=== PATIENT | female | born 1975 | race Caucasian/White ===

== ENCOUNTER 2017-07-14 11:58 | Inpatient (IN) | payer OTHER ==
[~2017-07-14] VITALS: Ht 165.1 cm; Wt 73.1 kg
[~2017-07-14 11:58] MED LIST: BUPR1SUB SL
[2017-07-14] MEDS ORDERED: SODIUM CHLORIDE 0.9% 1000ML 1,000 ML IV ONE (12:04)
--- NOTE | 2017-07-14 12:04 | EMERGENCY ROOM VISIT NOTE ---
History Report prepared by Adam: Lux Coombs Under the Supervision of: Dr. John White D.O. First contact with patient: 11:58 Stated Complaint: SEPSIS History of Present Illness The patient is a 41 year old female sepsis alert who presents to the Emergency Room with a worsening drug overdose over the past couple weeks. Per EMS, the patient has been laying around her own filth on her couch for 14 days. An insulin syringe was found under her bra at the scene, and the patient is a known heroin addict. The couch was soaked in urine and blood, and the patient is currently menstruating. Family members have been in and out of her home to bring the patient items to drink and eat. Per EMS, the patient's sugars were 170 at the scene. The patient notes that she is a current smoker. History somewhat limited secondary to patient's altered mental status. Source of History: patient, EMS History Limited By: AMS Onset: Over past couple weeks Position: other (global) Symptom Intensity: insulin syringe found under her bra Quality: other (drug overdose) Timing: worsening Associated Symptoms: + urinary symptoms (incontinence) Note: Associated symptoms: Couch covered in blood. Laying around in her own filth for 14 days. Review of Systems See HPI for pertinent positives & negatives. A total of 10 systems reviewed and were otherwise negative. Past Medical & Surgical Medical Problems: (1) Altered mental status (2) Depression (3) Sepsis (4) Suicidal ideation Family History Diabetes mellitus Hypertension Social History Smoking Status: Current Every Day Smoker Drug Use: heroin Marital Status: single Housing Status: lives alone Occupation Status: unemployed Current/Historical Medications Unable to Obtain Active Prescriptions or Reported Meds Allergies Coded Allergies: No Known Allergies (Unverified , 07/14/17) Physical Exam Vital Signs Date Time Temp Pulse Resp B/P (MAP) Pulse Ox O2 Delivery O2 Flow Rate FiO2 07/14/17 15:24 39.6 125 99 07/14/17 15:00 126 28 124/84 07/14/17 14:30 37.8 124 20 119/79 99 Room Air 07/14/17 13:30 124 20 110/74 100 Room Air 07/14/17 12:09 134 07/14/17 12:00 38.3 131 22 117/79 95 Room Air 07/14/17 12:00 97 Room Air Physical Exam GENERAL: Patient is slow to respond to questions but appears to answer appropriately. EYES: Pupils were constricted and minimally reactive to light bilaterally. EARS, NOSE, MOUTH AND THROAT: The nose is without any evidence of any deformity. Mucous membranes are dry, tongue is midline NECK: The neck is nontender and supple. RESPIRATORY: Normal respiratory effort is noted there is no evidence of wheezing rhonchi or rales CARDIOVASCULAR: Heart sounds were tachycardic but regular. No definite murmurs noted. GASTROINTESTINAL: The abdomen is mildly distended but soft. No guarding or rigidity appreciated. PELVIS: The Pelvis is stable. No tenderness to palpation is noted. BACK: No midline tenderness or or step-off noted range of motion in flexion extension as well as rotation no signs of muscle spasm noted MUSCULOSKELETAL/EXTREMITIES: There is no evidence of gross deformity full range of motion is noted in the hips and shoulders SKIN: There is pedal edema bilaterally with generalized edema throughout both lower extremities. Ecchymosis over both lower extremities which was age- indeterminant. NEUROLOGIC: Patient is oriented to person, place, and situation. Patellar tendon reflexes were absent bilaterally. Medical Decision & Procedures ER Provider Diagnostic Interpretation: Radiology results as stated below per my review and radiologist interpretation: CHEST ONE VIEW PORTABLE HISTORY: 41 years-old Female Sepsis acute sepsis COMPARISON: Chest radiograph 09/14/2013 TECHNIQUE: Portable AP view of the chest FINDINGS: Heart and mediastinal and hilar silhouettes are within normal limits. No pneumothorax, pleural effusion or overt pulmonary edema. Subsegmental left basilar opacities are noted. Bones of the chest appear grossly intact. IMPRESSION: Subsegmental left basilar opacities suggest atelectasis. The above report was generated using voice recognition software. It may contain grammatical, syntax or spelling errors. Electronically signed by: Toni Breaux M.D. 07/14/2017 12:32 PM Dictated Date/Time: 07/14/2017 12:31 PM THORACIC SPINE WITH HISTORY: 41 years-old Female pain, recent IVDA acute thoracic spine pain with history of IV drug abuse. COMPARISON: CT cervical spine of same day TECHNIQUE: Multiple axial CT images of the thoracic spine were obtained following the intravenous administration of 92 mL Optiray 320 IV contrast. Coronal and sagittal reformatted images were obtained from the axial data set and were submitted for review. A dose lowering technique was used consistent with the principals of ALARA. FINDINGS: Mild degenerative changes about the lower cervical spine as reported on separately dictated CT cervical spine study of same day. No acute fracture or subluxation of the thoracic spine. No significant intervertebral disc space narrowing, central canal or foraminal narrowing identified. The imaged ribs also appear intact. Lobulated low attenuating lesion of the left upper quadrant measures 4.6 x 2.8 cm, likely within the left hepatic lobe with suggested discontinuous nodular peripheral enhancement suggesting a possible hemangioma. No perisplenic fluid identified on these images. There is mild stranding about mildly thickened left adrenal gland. 2 mm nonobstructing calculus of the superior pole left kidney. No paraspinal or pleural fluid collections identified. There is no abnormal enhancement. Aberrant right subclavian artery. No pneumothorax. Lung paulino appear generally clear. IMPRESSION: 1. Mildly motion degraded exam without acute fracture or subluxation. No abnormal enhancement. 2. Lobulated 4.6 cm lesion of the abdominal left upper quadrant appears to be within the left hepatic lobe, possibly reflecting a hemangioma. Less likely differential consideration would include a splenic lesion. 3. 2 mm nonobstructing calculus of the superior pole left kidney. 4. Aberrant right subclavian artery. The above report was generated using voice recognition software. It may contain grammatical, syntax or spelling errors. Electronically signed by: Toni Breaux M.D. 07/14/2017 3:01 PM Dictated Date/Time: 07/14/2017 2:53 PM LUMBAR SPINE WITH CLINICAL HISTORY: pain, recent IVDA TECHNIQUE: Transaxial acquisition with multi axial reformatted images COMPARISON STUDY: None FINDINGS: Normal alignment of the vertebral bodies. Intervertebral this are well-preserved. Minimal scattered degenerative changes of the vertebral endplates. Posterior elements are intact throughout. No evidence for spondylolysis or spondylolisthesis. IMPRESSION: Minimal degenerative change. No acute process. The above report was generated using voice recognition software. It may contain grammatical, syntax or spelling errors. Electronically signed by: Santy Tony M.D. 07/14/2017 3:01 PM Dictated Date/Time: 07/14/2017 2:59 PM HEAD WITHOUT CONTRAST (CT) CLINICAL HISTORY: 41 years-old Female with altered MS. Acutely altered mental status TECHNIQUE: Multiple axial CT images of the head were obtained without contrast. A dose lowering technique was utilized adhering to the principles of ALARA. COMPARISON: CT cervical spine of same day FINDINGS: Study is mildly motion degraded. No acute intracranial hemorrhage, midline shift, intracranial mass, hydrocephalus, territorial ischemia or abnormal extra-axial collection. Senescent calcifications of the lentiform nuclei. The calvarium is intact. Mastoid air cells are clear. Mild to moderate mucosal thickening of the ethmoid air cells. Soft tissues and orbits are unremarkable. IMPRESSION: No acute intracranial abnormality. The above report was generated using voice recognition software. It may contain grammatical, syntax or spelling errors. Electronically signed by: Toni Breaux M.D. 07/14/2017 2:53 PM Dictated Date/Time: 07/14/2017 2:49 PM CERVICAL SPINE W/O CLINICAL HISTORY: 41 years-old Female with altered MS. Acute neck pain with altered mental status COMPARISON: CT head of same day. TECHNIQUE: Multiple axial CT images of the cervical spine were obtained without contrast. A dose lowering technique was utilized adhering to the principles of ALARA. FINDINGS: Mastoid air cells and middle ear cavities are clear. No acute cervical spine fracture or subluxation identified. There is mild intervertebral disc space narrowing with disc osteophyte complex formation at C5-C6. Multilevel mild uncovertebral spurring with minimal multilevel right-sided facet spurring. No high-grade central canal or foraminal narrowing. There is suggestion of mild left-sided foraminal narrowing at C5-C6. Soft tissues and imaged lung apices appear clear. IMPRESSION: No acute cervical spine fracture or subluxation. The above report was generated using voice recognition software. It may contain grammatical, syntax or spelling errors. Electronically signed by: Toni Breaux M.D. 07/14/2017 2:49 PM Dictated Date/Time: 07/14/2017 2:44 PM Laboratory Results 07/14/17 12:23 Red Blood Count 4.28, Mean Corpuscular Volume 82.2, Mean Corpuscular Hemoglobin 27.6, Mean Corpuscular Hemoglobin Concent 33.5, Mean Platelet Volume 8.9, Neutrophils (%) (Auto) 89.1, Lymphocytes (%) (Auto) 2.6, Monocytes (%) (Auto) 7.3, Eosinophils (%) (Auto) 0.0, Basophils (%) (Auto) 0.1, Neutrophils # (Auto) 15.73, Lymphocytes # (Auto) 0.46, Monocytes # (Auto) 1.29, Eosinophils # (Auto) 0.00, Basophils # (Auto) 0.02 Test 07/14/17 12:23 07/14/17 12:37 07/14/17 13:15 07/14/17 15:55 White Blood Count 17.66 K/uL (4.8-10.8) Red Blood Count 4.28 M/uL (4.2-5.4) Hemoglobin 11.8 g/dL (12.0-16.0) Hematocrit 35.2 % (37-47) Mean Corpuscular Volume 82.2 fL (80-100) Mean Corpuscular Hemoglobin 27.6 pg (25-34) Mean Corpuscular Hemoglobin Concent 33.5 g/dl (32-36) Platelet Count 126 K/uL (130-400) Mean Platelet Volume 8.9 fL (7.4-10.4) Neutrophils (%) (Auto) 89.1 % Lymphocytes (%) (Auto) 2.6 % Monocytes (%) (Auto) 7.3 % Eosinophils (%) (Auto) 0.0 % Basophils (%) (Auto) 0.1 % Neutrophils # (Auto) 15.73 K/uL (1.4-6.5) Lymphocytes # (Auto) 0.46 K/uL (1.2-3.4) Monocytes # (Auto) 1.29 K/uL (0.11-0.59) Eosinophils # (Auto) 0.00 K/uL (0-0.5) Basophils # (Auto) 0.02 K/uL (0-0.2) RDW Standard Deviation 39.4 fL (36.4-46.3) RDW Coefficient of Variation 13.1 % (11.5-14.5) Immature Granulocyte % (Auto) 0.9 % Immature Granulocyte # (Auto) 0.16 K/uL (0.00-0.02) Erythrocyte Sedimentation Rate 33 mm/hr (0-21) Prothrombin Time 17.0 SECONDS (9.0-12.0) Prothromb Time International Ratio 1.6 (0.9-1.1) Activated Partial Thromboplast Time 37.8 SECONDS (21.0-31.0) Partial Thromboplastin Ratio 1.5 Venous Blood pH 7.41 (7.36-7.41) Venous Blood Partial Pressure CO2 36 mmHg (38.0-50.0) Venous Blood Partial Pressure O2 35 mmHg Venous Blood HCO3 23 mmol/L Venous Blood Oxygen Saturation 65.7 % Venous Blood Base Excess -1.5 mEq/L Osmolality 278 mOsm/kg (280-300) Phosphorus Level 2.2 mg/dl (2.5-4.9) Magnesium Level 1.3 mg/dl (1.8-2.4) Total Creatine Kinase 183 U/L (26-192) Creatine Kinase MB 2.0 ng/ml (0.5-3.6) Creatine Kinase MB Ratio 1.1 (0-3.0) C-Reactive Protein 25.60 mg/dl (0-0.29) Globulin 4.5 gm/dl (2.5-4.0) Albumin/Globulin Ratio 0.5 (0.9-2) Lipase 43 U/L (73-393) Human Chorionic Gonadotropin, Qual NEG (NEG) Ethyl Alcohol mg/dL < 3.0 mg/dl (0-3) Bedside Hemoglobin 12.2 g/dl (12.0-16.0) Bedside Hematocrit 36 % (37-47) Bedside Sodium 135 mEq/L (135-144) Bedside Potassium 3.1 mEq/L (3.3-5.0) Bedside Chloride 97 mEq/L (101-112) Bedside Total CO2 23 mEq/l (24-31) Bedside Blood Urea Nitrogen 19 mg/dl (7-18) Bedside Creatinine 1.1 mg/dl (0.6-1.3) Bedside Glucose (other) 130 mg/dl (70-99) Bedside Ionized Calcium (Tom) 0.99 mmol/l (1.12-1.32) Urine Color DK YELLOW Urine Appearance CLOUDY (CLEAR) Urine pH 5.0 (4.5-7.5) Urine Specific [place] 1.026 (1.000-1.030) Urine Protein 2+ (NEG) Urine Glucose (UA) NEG (NEG) Urine Ketones TRACE (NEG) Urine Occult Blood 3+ (NEG) Urine Nitrite POS (NEG) Urine Bilirubin 1+ (NEG) Urine Urobilinogen NEG (NEG) Urine Leukocyte Esterase MODERATE (NEG) Urine WBC (Auto) >30 /hpf (0-5) Urine RBC (Auto) 5-10 /hpf (0-4) Urine Hyaline Casts (Auto) 1-5 /lpf (0-5) Urine Epithelial Cells (Auto) 10-20 /lpf (0-5) Urine Bacteria (Auto) NEG (NEG) Urine Renal Epithelial Cells /lpf (0-5) Urine Pathogenic Casts /lpf (0) Urine Mucus PRESENT (NONE PRSENT) Urine Yeast (Auto) (NONE PRSENT) Urine Opiates Screen NEG (NEG) Urine Methadone, Qualitative NEG (NEG) Urine Barbiturates NEG (NEG) Urine Phencyclidine (PCP) Level NEG (NEG) Ur Amphetamine/Methamphetamine POS (NEG) MDMA (Ecstasy) Screen POS (NEG) Urine Benzodiazepines Screen NEG (NEG) Urine Cocaine Metabolite NEG (NEG) Urine Marijuana (THC) NEG (NEG) CSF Color COLORLESS CSF Appearance CLEAR CSF WBC 46 /uL (0-5) CSF RBC 3 /uL (0) CSF Polynuclear WBCs 34.0 % CSF Mononuclear WBCs 66.0 % CSF Xanthrochromic NO XANTHOCHROMIA CSF Cell Count Tube # 4 CSF Polynuclear WBCs (%) % CSF Chemistry Tube # 2 CSF Glucose 70 mg/dl (40-70) CSF Total Protein 64.3 mg/dl (15.0-45.0) Laboratory results per my review. Medications Administered Medications (Trade) Dose Ordered Sig/[place] Route Start Time Stop Time Status Last Admin Dose Admin Sodium Chloride 1,000 ml @ 999 mls/hr Q1H1M ONCE IV 07/14/17 12:04 07/14/17 13:04 DC 07/14/17 12:40 999 MLS/HR Piperacillin Sod/ Tazobactam Sod (Zosyn Iv) 4.5 gm NOW STAT IV 07/14/17 12:35 07/14/17 12:37 DC 07/14/17 13:41 4.5 GM Sodium Chloride 1,000 ml @ 999 mls/hr Q1H1M STAT IV 07/14/17 12:36 07/14/17 13:36 DC 07/14/17 12:40 999 MLS/HR Magnesium Sulfate (Magnesium Sulfate 1gm / D5W) 2 gm NOW STAT IV 07/14/17 12:57 07/14/17 12:58 DC 07/14/17 13:41 2 GM Potassium Chloride 100 ml @ 100 mls/hr NOW STAT IV 07/14/17 12:58 07/14/17 13:57 DC 07/14/17 13:41 100 MLS/HR Sodium Chloride 1,000 ml @ 999 mls/hr Q1H1M STAT IV 07/14/17 15:46 07/14/17 16:46 DC 07/14/17 16:01 999 MLS/HR Procedure Femoral Central Venous Catheter Indication: Sepsis. Catheter Type: Triple lumen. Location: Right groin. Verbal consent was obtained after the risks and benefits were explained, including but not limited to intra-abdominal injury, vessel injury, bleeding, scarring, infection, pain, and bone/joint/nerve damage. At this time, the risks of the procedure are less than the risks of NOT performing the procedure. A time out was taken and the correct patient and site identified. The patient was placed in the supine position and the skin was prepped in the standard fashion with chlorhexidine and full sterile drapes applied. The proper landmarks were identified with ultrasound, anesthetized with 1% lidocaine without epinephrine, and the needle was inserted through the skin in the standard fashion. The needle was carefully advanced into blood vessel lumen using landmarks. The guidewire was placed uneventfully. The vessel is dilated and the catheter was placed. It was sutured into position. There was good blood return from all ports. The patient tolerated the procedure well and there were no complications. Lumbar Puncture Indication: Sepsis. Verbal consent was obtained after the risks and benefits were explained, including but not limited to headache, bleeding/clotting, scarring, infection, pain, and bone/joint/nerve damage. At this time, the risks of the procedure are less than the risks of NOT performing the procedure. A time out was taken and the correct patient and site identified. The patient was placed in the left lateral recumbent position and the back was prepped with betadine and draped in the standard fashion. The L3 intervertebral space was identified, anesthetized locally with 1% lidocaine without epinephrine, and the spinal needle was inserted through the skin with the bevel parallel to the dural fibers. The needle was carefully advanced into the lumbar cistern and 4 tubes of clear CSF was obtained. The stylet was replaced and the needle was removed. A bandaid was placed and the patient was placed in the supine position. The patient tolerated the procedure well and there were no complications. ECG Per My Interpretation Indication: altered mental status Rate (beats per minute): 127 Rhythm: sinus tachycardia Findings: no ectopy, other (no acute ST segment abnormalities) ED Course 1159: The patient was evaluated in room B1. A limited history and physical examination were performed. 1204: NSS 1000 ml @ 999 mls/hr IV. 1235: Zosyn IV 4.5 gm. 1257: Magnesium Sulfate 1 gm / D5W 2 gm IV. 1258: Potassium Chloride 100 ml @ 100 mls/hr IV. 1314: I reevaluated the patient and talked to her family. 1526: I reevaluated the patient and talked to her family about the results. 1540: Upon reevaluation, the patient is resting. I discussed results and treatment plan with the patient and her family. They verbalize agreement and understanding. The patient will be evaluated for further management and care. 1545: I discussed the patient with Shabnam AUGUSTINE. She will evaluate the patient for further treatment. 1600: Buffered Lidocaine 1% Inj 20 ml INFIL. Medical Decision Differential diagnosis: Etiologies such as metabolic, infection, hypoglycemia, electrolyte abnormalities , cardiac sources, intracerebral event, toxicologic, neurologic, as well as others were entertained. Nursing notes reviewed. Additional history is obtained from the patient's family members. Additional history is obtained from the prehospital personnel. The patient is a 41-year-old female who presented to the emergency department for fever and altered mental status. The patient has a history of drug abuse but according to family members she had not been using recently. She was found to be in possession of a syringe as well as a crystalline substance in her bra. There was also some track wilkinson noted but they were age-indeterminate. The patient was treated with IV fluids and IV antibiotics. She was reevaluated multiple times. A central line was placed. I discussed patient's laboratory and radiographic studies with her and her family. I also discussed her case with the on-call [facility] hospitalist. They have agreed to evaluate the patient in the emergency department for further management and disposition. The patient also had a lumbar puncture which appears to be consistent with possible meningitis. Antibiotic coverage was given for meningitis by the admitting team. Medication Reconcilliation Current Medication List: was personally reviewed by me Blood Pressure Screening Patient's blood pressure: Normal blood pressure Consults Time Called: 154 Consulting Physician: Shabnam AUGUSTINE Returned Call: [phone] I discussed the patient with Shabnam AUGUSTINE. She will evaluate the patient for further treatment. Impression Primary Impression: Altered mental status Additional Impressions: Sepsis Fever UTI (urinary tract infection) Meningitis Elevated troponin Critical Care I have personally spent greater than 60 minutes of critical care time in the direct management of this patient. This includes bedside care, interpretation of diagnostic studies, and testing, discussion with consultants, patient, and family members, and other required patient management activities. This 60 minutes is in excess of all separately billable procedures. Scribe Attestation The scribe's documentation has been prepared under my direction and personally reviewed by me in its entirety. I confirm that the note above accurately reflects all work, treatment, procedures, and medical decision making performed by me. Departure Information Dispostion Being Evaluated By Hospitalist Prescriptions Unable to Obtain Active Prescriptions or Reported Meds Problem Qualifiers Primary Impression: Altered mental status Altered mental status type: unspecified Qualified Codes: R41.82 - Altered mental status, unspecified Additional Impressions: Sepsis Sepsis type: sepsis due to unspecified organism Qualified Codes: A41.9 - Sepsis, unspecified organism Fever Fever type: unspecified Qualified Codes: R50.9 - Fever, unspecified UTI (urinary tract infection) Urinary tract infection type: site unspecified Hematuria presence: with hematuria Qualified Codes: N39.0 - Urinary tract infection, site not specified ; R31.9 - Hematuria, unspecified
--- NOTE | 2017-07-14 12:33 | DIAGNOSTIC IMAGING REPORT ---
CHEST ONE VIEW PORTABLE HISTORY: 41 years-old Female Sepsis acute sepsis COMPARISON: Chest radiograph 09/14/2013 TECHNIQUE: Portable AP view of the chest FINDINGS: Heart and mediastinal and hilar silhouettes are within normal limits. No pneumothorax, pleural effusion or overt pulmonary edema. Subsegmental left basilar opacities are noted. Bones of the chest appear grossly intact. IMPRESSION: Subsegmental left basilar opacities suggest atelectasis. The above report was generated using voice recognition software. It may contain grammatical, syntax or spelling errors. Electronically signed by: Toni Breaux M.D. 07/14/2017 12:32 PM Dictated Date/Time: 07/14/2017 12:31 PM
[2017-07-14] MEDS ORDERED: PIPERACILLIN/TAZOBACTAM 4.5 GM/100ML D5W IV STA (12:35)
[2017-07-14 12:36] LABS: HEMATOCRIT 35.2 % (37-47); HEMOGLOBIN 11.8 g/dL (12.0-16.0); MEAN CELL VOLUME 82.2 fL (80-100); MEAN CORPUSCULAR HEMOGLOBIN 27.6 pg (25-34); MEAN CORPUSCULAR HGB CONC 33.5 g/dl (32-36); MEAN PLATELET VOLUME 8.9 fL (7.4-10.4); PLATELET COUNT 126 K/uL (130-400); RED CELL DISTRIBUTION WIDTH CV 13.1 % (11.5-14.5); RED CELL DISTRIBUTION WIDTH SD 39.4 fL (36.4-46.3); WHITE BLOOD COUNT 17.66 K/uL (4.8-10.8)
[2017-07-14] MEDS ORDERED: SODIUM CHLORIDE 0.9% 1000ML 1,000 ML IV STA ×2 (12:36→15:46)
[2017-07-14 12:48] LABS: INR 1.6 (0.9-1.1); PTT PATIENT 37.8 SECONDS (21.0-31.0)
[2017-07-14 12:54] LABS: ALBUMIN 2.4 gm/dl (3.4-5.0); CALCIUM 7.8 mg/dl (8.5-10.1); CREATININE 1.26 mg/dl (0.60-1.20)
[2017-07-14] MEDS ORDERED: MAGNESIUM SULFATE 1GM / D5W 1 GM BAG IV STA (12:57)
[2017-07-14] MEDS ORDERED: POTASSIUM CHLR 10 MEQ / WTR 100 ML IV STA (12:58)
[2017-07-14 13:01] LABS: BASO % 0.1 %; BASO ABS # 0.02 K/uL (0-0.2); IG# 0.16 K/uL (0.00-0.02); LYMPH % 2.6 %; LYMPH ABS # 0.46 K/uL (1.2-3.4); MONO % 7.3 %; MONO ABS # 1.29 K/uL (0.11-0.59); NEUT % 89.1 %; NEUT ABS # 15.73 K/uL (1.4-6.5)
[2017-07-14 13:05] LABS: PHOSPHORUS 2.2 mg/dl (2.5-4.9); TOTAL PROTEIN 6.9 gm/dl (6.4-8.2)
[2017-07-14 13:23] LABS: ISTAT CREATININE 1.1 mg/dl (0.6-1.3); ISTAT IONIZED CALCIUM 0.99 mmol/l (1.12-1.32); ISTAT POTASSIUM 3.1 mEq/L (3.3-5.0)
[2017-07-14] MEDS ORDERED: OPTIRAY 320 IV PRN (13:30)
--- NOTE | 2017-07-14 14:51 | DIAGNOSTIC IMAGING REPORT ---
CERVICAL SPINE W/O CLINICAL HISTORY: 41 years-old Female with altered MS. Acute neck pain with altered mental status COMPARISON: CT head of same day. TECHNIQUE: Multiple axial CT images of the cervical spine were obtained without contrast. A dose lowering technique was utilized adhering to the principles of ALARA. FINDINGS: Mastoid air cells and middle ear cavities are clear. No acute cervical spine fracture or subluxation identified. There is mild intervertebral disc space narrowing with disc osteophyte complex formation at C5-C6. Multilevel mild uncovertebral spurring with minimal multilevel right-sided facet spurring. No high-grade central canal or foraminal narrowing. There is suggestion of mild left-sided foraminal narrowing at C5-C6. Soft tissues and imaged lung apices appear clear. IMPRESSION: No acute cervical spine fracture or subluxation. The above report was generated using voice recognition software. It may contain grammatical, syntax or spelling errors. Electronically signed by: Toni Breaux M.D. 07/14/2017 2:49 PM Dictated Date/Time: 07/14/2017 2:44 PM
--- NOTE | 2017-07-14 14:54 | DIAGNOSTIC IMAGING REPORT ---
HEAD WITHOUT CONTRAST (CT) CLINICAL HISTORY: 41 years-old Female with altered MS. Acutely altered mental status TECHNIQUE: Multiple axial CT images of the head were obtained without contrast. A dose lowering technique was utilized adhering to the principles of ALARA. COMPARISON: CT cervical spine of same day FINDINGS: Study is mildly motion degraded. No acute intracranial hemorrhage, midline shift, intracranial mass, hydrocephalus, territorial ischemia or abnormal extra-axial collection. Senescent calcifications of the lentiform nuclei. The calvarium is intact. Mastoid air cells are clear. Mild to moderate mucosal thickening of the ethmoid air cells. Soft tissues and orbits are unremarkable. IMPRESSION: No acute intracranial abnormality. The above report was generated using voice recognition software. It may contain grammatical, syntax or spelling errors. Electronically signed by: Toni Breaux M.D. 07/14/2017 2:53 PM Dictated Date/Time: 07/14/2017 2:49 PM
--- NOTE | 2017-07-14 15:02 | DIAGNOSTIC IMAGING REPORT ---
LUMBAR SPINE WITH CLINICAL HISTORY: pain, recent IVDA TECHNIQUE: Transaxial acquisition with multi axial reformatted images COMPARISON STUDY: None FINDINGS: Normal alignment of the vertebral bodies. Intervertebral this are well-preserved. Minimal scattered degenerative changes of the vertebral endplates. Posterior elements are intact throughout. No evidence for spondylolysis or spondylolisthesis. IMPRESSION: Minimal degenerative change. No acute process. The above report was generated using voice recognition software. It may contain grammatical, syntax or spelling errors. Electronically signed by: Santy Tony M.D. 07/14/2017 3:01 PM Dictated Date/Time: 07/14/2017 2:59 PM
--- NOTE | 2017-07-14 15:02 | DIAGNOSTIC IMAGING REPORT ---
THORACIC SPINE WITH HISTORY: 41 years-old Female pain, recent IVDA acute thoracic spine pain with history of IV drug abuse. COMPARISON: CT cervical spine of same day TECHNIQUE: Multiple axial CT images of the thoracic spine were obtained following the intravenous administration of 92 mL Optiray 320 IV contrast. Coronal and sagittal reformatted images were obtained from the axial data set and were submitted for review. A dose lowering technique was used consistent with the principals of JONI. FINDINGS: Mild degenerative changes about the lower cervical spine as reported on separately dictated CT cervical spine study of same day. No acute fracture or subluxation of the thoracic spine. No significant intervertebral disc space narrowing, central canal or foraminal narrowing identified. The imaged ribs also appear intact. Lobulated low attenuating lesion of the left upper quadrant measures 4.6 x 2.8 cm, likely within the left hepatic lobe with suggested discontinuous nodular peripheral enhancement suggesting a possible hemangioma. No perisplenic fluid identified on these images. There is mild stranding about mildly thickened left adrenal gland. 2 mm nonobstructing calculus of the superior pole left kidney. No paraspinal or pleural fluid collections identified. There is no abnormal enhancement. Aberrant right subclavian artery. No pneumothorax. Lung paulino appear generally clear. IMPRESSION: 1. Mildly motion degraded exam without acute fracture or subluxation. No abnormal enhancement. 2. Lobulated 4.6 cm lesion of the abdominal left upper quadrant appears to be within the left hepatic lobe, possibly reflecting a hemangioma. Less likely differential consideration would include a splenic lesion. 3. 2 mm nonobstructing calculus of the superior pole left kidney. 4. Aberrant right subclavian artery. The above report was generated using voice recognition software. It may contain grammatical, syntax or spelling errors. Electronically signed by: Toni Breaux M.D. 07/14/2017 3:01 PM Dictated Date/Time: 07/14/2017 2:53 PM
[2017-07-14] MEDS ORDERED: LIDOCAINE 1% BUFFERED INJ 5 ML VIAL ONE (15:47)
[2017-07-14] MEDS ORDERED: ACETAMINOPHEN 325 MG TAB PO PRN (16:00)
[2017-07-14] MEDS ORDERED: ALUMINUM/MAGNESIUM/SIMETH (MAALOX MAX) 30 ML UDC PO PRN (16:00)
[2017-07-14] MEDS ORDERED: POLYETHYLENE (MIRALAX) 17 GM PACK PO PRN (16:00)
[2017-07-14] MEDS ORDERED: LIDOCAINE 1% BUFFERED INJ 5 ML VIAL INFIL ONE (16:00)
[2017-07-14] MEDS ORDERED: ONDANSETRON INJ 2 MG/ML 2 ML VIAL IV PRN (16:00)
[2017-07-14] MEDS ORDERED: MAGNESIUM HYDROXIDE SUSP 30 ML UDC PO PRN (16:00)
[2017-07-14] MEDS ORDERED: PIPERACILL/TAZOBAC CONSULT ACTIVE PRN (16:30)
[2017-07-14] MEDS ORDERED: VANCOMYCIN CONSULT ACTIVE PRN (16:30)
[2017-07-14 16:36] LABS: CSF GLUCOSE 70 mg/dl (40-70); CSF TOTAL PROTEIN 64.3 mg/dl (15.0-45.0)
--- NOTE | 2017-07-14 17:05 | History and Physical ---
History & Physical Date & Time of Service: July 14, 2017 at 16:32 Chief Complaint: Sepsis Primary Care Physician: No Doctor, Assigned History of Present Illness Source: family Ms. Arias is a 41 y/o female with PMHx of Hepatitis C, Former Heroin User, Tobacco User, Possible Bipolar/Schizophrenia who presents to the ED by EMS for suspected overdose. All information obtained from family and friend at bedside as patient is obtunded. She does open her eyes and answer quick questions but this is limited and eyes roll back. Per family, approx. 8 days ago patient was lifting her dog and hurt her back and has complained of back pain since. They report she was in her normal state of health prior to this. Since this event, she has not been able to move from her chair. They state she was in her normal mentation during this time but just could not move due to her back pain. Friend states that she was called a couple days ago because the patient stated she hasn 't eaten in 5 days. Patient has progressively become more obtunded per family over these days. The friend called EMS today. Per EMS she was found in her own feces/urine/menstrual blood. She was found with an insulin syringe and a translucent hard substance in a small bag in her bra. Family reports she is on Suboxone supplied by the [facility] but daughter states she ran out a couple days ago. They were concerned she would use again but reports her heroin use was in the past. Patient has track wilkinson on b/l arms and family reports she is not diabetic and could not explain the insulin syringe. Her drug screen shows methamphetamine + and family wasn't aware of her use of this. Per notes, supposedly handwritten notes were found near her on the scene but doesn't depict the importance of this to suggest if this was a suicide note? Per the documentation, EMS asked if she was trying to hurt herself and she was unable to answer due to mentation. Family reports she likely has Bipolar and Schizophrenia. They were not sure if she is on medications for this but uses [facility]. Called [facility] and the only Rx they have filled x 2 years was Suboxone. In the ED, patient is mostly obtunded and constantly moaning. Family states this started when she arrived here. Leukocytosis of 17.6. Multiple electrolyte abnormalities. Mildly elevated Cr. LFTs elevated. Cardiac markers elevated at 0.2 and will trend. Lactic acid 4.1. VBG largely unremarkable. UA looks dirty but neg for bacteria. UCx and BCx pending. LP with clear spinal fluid with labs pending. Brudzinski's sign negative. No direct source of infection found. Skin with track wilkinson and scabs. No overt cellulitis. Past Medical/Surgical History Medical Problems: (1) Acute bronchitis (2) Acute neck pain (3) Altered mental status (4) Depression (5) Kidney stone (6) Sepsis (7) Suicidal ideation (8) Wheezing Family History Diabetes mellitus Hypertension Social History Smoking Status: Current Every Day Smoker Smokeless Tobacco Use: No Drug Use: heroin Marital Status: single Occupational Status: unemployed Allergies Coded Allergies: No Known Allergies (Unverified , 07/14/17) Home Medications Unable to Obtain Active Prescriptions or Reported Meds Review of Systems ROS not obtained as patient is obtunded. Physical Exam Vital Signs Date Time Temp Pulse Resp B/P (MAP) Pulse Ox O2 Delivery O2 Flow Rate FiO2 07/14/17 16:03 107 13 121/83 96 Room Air 07/14/17 15:24 39.6 125 99 07/14/17 15:00 126 28 124/84 07/14/17 14:30 37.8 124 20 119/79 99 Room Air 07/14/17 13:30 124 20 110/74 100 Room Air 07/14/17 12:09 134 07/14/17 12:00 38.3 131 22 117/79 95 Room Air 07/14/17 12:00 97 Room Air General Appearance: + mild distress, + pertinent finding (looks older than age) Head: normocephalic, atraumatic Eyes: sclerae normal Neck: supple, no JVD, trachea midline Respiratory/Chest: no accessory muscle use, + respiratory distress (increased frequency of breathing), + decreased breath sounds (bases b/l) Cardiovascular: no murmur, + tachycardia Abdomen/GI: non tender (no facial grimace or signs of pain with palpation), + abnormal bowel sounds (hypoactive x 4 quadrants), + distended Extremities/Musculoskelatal: no pedal edema Neurologic/Psych: + pertinent finding (obtunded) Skin: + diaphoresis, + pertinent finding (track wilkinson of b/l hands possible; acne-like scabs on face) Diagnostics Laboratory Results Results Past 24 Hours Test 07/14/17 12:23 07/14/17 12:37 07/14/17 13:15 07/14/17 15:55 Range/Units White Blood Count 17.66 4.8-10.8 K/uL Red Blood Count 4.28 4.2-5.4 M/uL Hemoglobin 11.8 12.0-16.0 g/dL Hematocrit 35.2 37-47 % Mean Corpuscular Volume 82.2 80-100 fL Mean Corpuscular Hemoglobin 27.6 25-34 pg Mean Corpuscular Hemoglobin Concent 33.5 32-36 g/dl Platelet Count 126 130-400 K/uL Mean Platelet Volume 8.9 7.4-10.4 fL Neutrophils (%) (Auto) 89.1 % Lymphocytes (%) (Auto) 2.6 % Monocytes (%) (Auto) 7.3 % Eosinophils (%) (Auto) 0.0 % Basophils (%) (Auto) 0.1 % Neutrophils # (Auto) 15.73 1.4-6.5 K/uL Lymphocytes # (Auto) 0.46 1.2-3.4 K/uL Monocytes # (Auto) 1.29 0.11-0.59 K/uL Eosinophils # (Auto) 0.00 0-0.5 K/uL Basophils # (Auto) 0.02 0-0.2 K/uL RDW Standard Deviation 39.4 36.4-46.3 fL RDW Coefficient of Variation 13.1 11.5-14.5 % Immature Granulocyte % (Auto) 0.9 % Immature Granulocyte # (Auto) 0.16 0.00-0.02 K/uL Erythrocyte Sedimentation Rate 33 0-21 mm/hr Prothrombin Time 17.0 9.0-12.0 SECONDS Prothromb Time International Ratio 1.6 0.9-1.1 Activated Partial Thromboplast Time 37.8 21.0-31.0 SECONDS Partial Thromboplastin Ratio 1.5 Venous Blood pH 7.41 7.36-7.41 Venous Blood Partial Pressure CO2 36 38.0-50.0 mmHg Venous Blood Partial Pressure O2 35 mmHg Venous Blood HCO3 23 mmol/L Venous Blood Oxygen Saturation 65.7 % Venous Blood Base Excess -1.5 mEq/L Sodium Level 133 136-145 mmol/L Potassium Level 3.0 3.5-5.1 mmol/L Chloride Level 99 98-107 mmol/L Carbon Dioxide Level 22 21-32 mmol/L Anion Gap 12.0 19.0 16-25 mmol/L Blood Urea Nitrogen 19 7-18 mg/dl Creatinine 1.26 0.60-1.20 mg/dl Est Creatinine Clear Calc Drug Dose 59.4 ml/min Estimated GFR () 61.7 Estimated GFR (Non- 53.2 BUN/Creatinine Ratio 15.3 10-20 Random Glucose 124 70-99 mg/dl Osmolality 278 280-300 mOsm/kg Lactic Acid Level 4.1 0.4-2.0 mmol/L Calcium Level 7.8 8.5-10.1 mg/dl Phosphorus Level 2.2 2.5-4.9 mg/dl Magnesium Level 1.3 1.8-2.4 mg/dl Total Bilirubin 1.2 0.2-1 mg/dl Aspartate Amino Transf (AST/SGOT) 116 15-37 U/L Alanine Aminotransferase (ALT/SGPT) 121 12-78 U/L Alkaline Phosphatase 418 45-117 U/L Total Creatine Kinase 183 26-192 U/L Creatine Kinase MB 2.0 0.5-3.6 ng/ml Creatine Kinase MB Ratio 1.1 0-3.0 Troponin I 0.209 0-0.045 ng/ml C-Reactive Protein 25.60 0-0.29 mg/dl Total Protein 6.9 6.4-8.2 gm/dl Albumin 2.4 3.4-5.0 gm/dl Globulin 4.5 2.5-4.0 gm/dl Albumin/Globulin Ratio 0.5 0.9-2 Lipase 43 73-393 U/L Human Chorionic Gonadotropin, Qual NEG NEG Ethyl Alcohol mg/dL < 3.0 0-3 mg/dl Bedside Hemoglobin 12.2 12.0-16.0 g/dl Bedside Hematocrit 36 37-47 % Bedside Sodium 135 135-144 mEq/L Bedside Potassium 3.1 3.3-5.0 mEq/L Bedside Chloride 97 101-112 mEq/L Bedside Total CO2 23 24-31 mEq/l Bedside Blood Urea Nitrogen 19 7-18 mg/dl Bedside Creatinine 1.1 0.6-1.3 mg/dl Bedside Glucose (other) 130 70-99 mg/dl Bedside Ionized Calcium (Tom) 0.99 1.12-1.32 mmol/l Urine Color DK YELLOW Urine Appearance CLOUDY CLEAR Urine pH 5.0 4.5-7.5 Urine Specific [place] 1.026 1.000-1.030 Urine Protein 2+ NEG Urine Glucose (UA) NEG NEG Urine Ketones TRACE NEG Urine Occult Blood 3+ NEG Urine Nitrite POS NEG Urine Bilirubin 1+ NEG Urine Urobilinogen NEG NEG Urine Leukocyte Esterase MODERATE NEG Urine WBC (Auto) >30 0-5 /hpf Urine RBC (Auto) 5-10 0-4 /hpf Urine Hyaline Casts (Auto) 1-5 0-5 /lpf Urine Epithelial Cells (Auto) 10-20 0-5 /lpf Urine Bacteria (Auto) NEG NEG Urine Renal Epithelial Cells 0-5 /lpf Urine Pathogenic Casts 0 /lpf Urine Mucus PRESENT NONE PRSENT Urine Yeast (Auto) NONE PRSENT Urine Opiates Screen NEG NEG Urine Methadone, Qualitative NEG NEG Urine Barbiturates NEG NEG Urine Phencyclidine (PCP) Level NEG NEG Ur Amphetamine/Methamphetamine POS NEG MDMA (Ecstasy) Screen POS NEG Urine Benzodiazepines Screen NEG NEG Urine Cocaine Metabolite NEG NEG Urine Marijuana (THC) NEG NEG Microbiology Results 07/14/17 Blood Culture, Received Pending 07/14/17 Blood Culture, Received Pending 07/14/17 Gram Stain, Received Pending 07/14/17 CSF Culture, Received Pending 07/14/17 Urine Culture, Received Pending Diagnostic Radiology CERVICAL SPINE W/O FINDINGS: Mastoid air cells and middle ear cavities are clear. No acute cervical spine fracture or subluxation identified. There is mild intervertebral disc space narrowing with disc osteophyte complex formation at C5-C6. Multilevel mild uncovertebral spurring with minimal multilevel right-sided facet spurring. No high-grade central canal or foraminal narrowing. There is suggestion of mild left-sided foraminal narrowing at C5-C6. Soft tissues and imaged lung apices appear clear. IMPRESSION: No acute cervical spine fracture or subluxation. HEAD WITHOUT CONTRAST (CT) FINDINGS: Study is mildly motion degraded. No acute intracranial hemorrhage, midline shift, intracranial mass, hydrocephalus, territorial ischemia or abnormal extra-axial collection. Senescent calcifications of the lentiform nuclei. The calvarium is intact. Mastoid air cells are clear. Mild to moderate mucosal thickening of the ethmoid air cells. Soft tissues and orbits are unremarkable. IMPRESSION: No acute intracranial abnormality. LUMBAR SPINE WITH FINDINGS: Normal alignment of the vertebral bodies. Intervertebral this are well-preserved. Minimal scattered degenerative changes of the vertebral endplates. Posterior elements are intact throughout. No evidence for spondylolysis or spondylolisthesis. IMPRESSION: Minimal degenerative change. No acute process. THORACIC SPINE WITH FINDINGS: Mild degenerative changes about the lower cervical spine as reported on separately dictated CT cervical spine study of same day. No acute fracture or subluxation of the thoracic spine. No significant intervertebral disc space narrowing, central canal or foraminal narrowing identified. The imaged ribs also appear intact. Lobulated low attenuating lesion of the left upper quadrant measures 4.6 x 2.8 cm, likely within the left hepatic lobe with suggested discontinuous nodular peripheral enhancement suggesting a possible hemangioma. No perisplenic fluid identified on these images. There is mild stranding about mildly thickened left adrenal gland. 2 mm nonobstructing calculus of the superior pole left kidney. No paraspinal or pleural fluid collections identified. There is no abnormal enhancement. Aberrant right subclavian artery. No pneumothorax. Lung paulino appear generally clear. IMPRESSION: 1. Mildly motion degraded exam without acute fracture or subluxation. No abnormal enhancement. 2. Lobulated 4.6 cm lesion of the abdominal left upper quadrant appears to be within the left hepatic lobe, possibly reflecting a hemangioma. Less likely differential consideration would include a splenic lesion. 3. 2 mm nonobstructing calculus of the superior pole left kidney. 4. Aberrant right subclavian artery. CHEST ONE VIEW PORTABLE FINDINGS: Heart and mediastinal and hilar silhouettes are within normal limits. No pneumothorax, pleural effusion or overt pulmonary edema. Subsegmental left basilar opacities are noted. Bones of the chest appear grossly intact. IMPRESSION: Subsegmental left basilar opacities suggest atelectasis. EKG Poor data quality, interpretation may be adversely affected Sinus tachycardia Otherwise normal ECG When compared with ECG of 14-SEP-2013 22:29, No significant change was found Confirmed by Hal Escobedo ([id number]) on 07/14/2017 2:41:57 PM Impression Assessment and Plan Ms. Arias is a 41 y/o female with PMHx of Hepatitis C, Heroin User, Tobacco User , Possible Bipolar/Schizophrenia who presents to the ED by EMS for suspected overdose Sepsis 2/2 Unknown Source - Endocarditis? Bacteremia for IV Drug Use? Viral Meningitis - Patient is febrile, intermittently tachypneic, and tachycardic. Leukocytosis 17 with Lactic 4.1 -- Possible end-organ issues with mildly elevated Cr and elevated LFTs - unsure baseline given Hep C - CSF showing elevated WBC and protein - possible early bacterial vs viral meningitis - will also send herpes testing - Ceftriaxone 2 g IV daily and Vancomycin; Acyclovir Q8H; Dexamethasone 10 mg x 1 dose - Await UCx and BCx - Obtain echo as possible endocarditis - may ultimately need CHUCHO pending transthoracic findings - Imaging unremarkable - given severity of back pain should get MRI in AM after recovery from LP to R/O abscess - D5NSS + 20 mEq KCl at 200 mL/hr - Consult ID - appreciate Abx recommendations once further identification can be made Drug Overdose: Methamphetamine +/Insulin Syringe found/Solid White Substance in Bag: - Methampetamine + on drug screen - Maintaining airway at this time VBG unremarkable - will monitor Acute Toxic vs Metabolic vs Other Encephalopathy: - Obtain ammonia and TSH levels to assess as contributing Constipation and Possible Ileus: - Mildy distended abdomen with large stool burden - NPO DVT Prophylaxis: Hold Heparin given LP; SCDs Disposition: - Called [facility] - no other meds except Suboxone - Hopefully more information can be obtained pending improvement with mentation Resident Physician Supervision Note: I was present with Shabnam TINSLEY during the history and exam. I discussed the case with the PA and agree with the findings and plan as documented in the note. Any exceptions or clarifications are listed here: 41 y/o F Hx Bipolar, polysubstance abuse including IV heroin, hep C - presenting with fever and AMS - initially thought due to OD. She is taking SUboxone currently and her UDS does not support an overdose. She cannot provide additional information. An LP was performed on admission and support either a viral or early bacterial meningitis. OE Somnolent, moaning, confused young F S1,2 R no M CTA on limited exam May have some upper quadrant tenderness No CCE Skin with evidence of needle use P: Due to likely meningitis, she is placed on Vanc, Ceftriaxone, Dex and Acyclovir pending culture results. An echo is ordered due to IVDU. Psych meds and additional PO meds held as she cannot currently comply with PO intake Family was present at bedside during admission to answer questions Above discussed in detail with PA and ER attending - initial orders were entered by attending Documented By: Brendon Parham Resuscitation Status VTE Prophylaxis Will order VTE Prophylaxis: Yes
[2017-07-14] MEDS ORDERED: ACETAMINOPHEN IV 100 ML IV PRN (17:30)
[2017-07-14 17:43] VITALS: Ht 165.1 cm; Wt 73.1 kg
[2017-07-14] MEDS ORDERED: ACETAMINOPHEN 1000 MG/100 ML IV IV ONE (17:58)
[2017-07-14] MEDS ORDERED: ACYCLOVIR SOD INJ 500 MG in DEXTROSE 5% 100ML 100 ML IV SCH (18:00)
[2017-07-14 18:24] LABS: ALBUMIN 2.1 gm/dl (3.4-5.0); CALCIUM 7.2 mg/dl (8.5-10.1); POTASSIUM 3.4 mmol/L (3.5-5.1); TOTAL PROTEIN 6.4 gm/dl (6.4-8.2)
[2017-07-14] MEDS: DEXTROSE 5% IV SCH (18:29)
[2017-07-14] MEDS: ACYCLOVIR SOD IV SCH (18:29)
[2017-07-14 18:41] LABS: CREATININE 0.86 mg/dl (0.60-1.20)
[2017-07-14] MEDS ORDERED: DEXAMETHASONE INJ 10 MG in SYRINGE 0 ML IV STA (18:45)
[2017-07-14] MEDS ORDERED: VANCOMYCIN IV 1,750 MG in SODIUM CHLORIDE 0.9% 500ML 500 ML IV STA (18:47)
[2017-07-14 18:49] VITALS: BP 122/69; PULSE 133; TEMP 38.2; O2SAT 93
[2017-07-14] MEDS: D5NSS + 20MEQ KCL 1,000 ML IV SCH (19:23)
[2017-07-14 19:36] VITALS: BP 102/67; PULSE 116; TEMP 37; O2SAT 98
[2017-07-14 20:00] VITALS: O2SAT 98
--- NOTE | 2017-07-14 20:21 | Pharmacy Progress Note ---
Pharmacy Abx Initial Consult Date of Service July 14, 2017. Pharmacy Dosing Scope Date of Consult: 07/14/17 Consultation requested by: Shabnam Bernabe PA-C Pharmacy is consulted to initiate Vancomycin IV dosing therapy, order appropriate labs and adjust drug dose/frequency. Subjective The patient is a 41 year old female admitted on July 14, 2017 at 15:55. Objective Height (Feet): 5 Height (Inches): 5.00 Weight (Kilograms): 73.100 Vital Signs (Past 12Hrs) Vital Signs Past 12 Hours Date Time Temp Pulse Resp B/P (MAP) Pulse Ox O2 Delivery O2 Flow Rate FiO2 07/14/17 18:49 38.2 133 24 122/69 (86) 93 Room Air 07/14/17 18:11 141 16 117/74 97 07/14/17 17:43 Room Air 07/14/17 17:27 39.6 133 24 98 Room Air 07/14/17 17:15 133 25 98 Room Air 07/14/17 17:00 132 26 99 Room Air 125/85 07/14/17 16:30 128 28 99 Room Air 118/80 07/14/17 16:03 107 13 121/83 96 Room Air 07/14/17 15:24 39.6 125 99 07/14/17 15:00 126 28 124/84 07/14/17 14:30 37.8 124 20 119/79 99 Room Air 07/14/17 13:30 124 20 110/74 100 Room Air 07/14/17 12:09 134 07/14/17 12:00 38.3 131 22 117/79 95 Room Air 07/14/17 12:00 97 Room Air Lab Results (24Hrs) Laboratory Tests (24 Hours) Test 07/14/17 12:23 07/14/17 18:46 C-Reactive Protein 25.60 mg/dl (0-0.29) H Erythrocyte Sedimentation Rate 33 mm/hr (0-21) H White Blood Count 17.66 K/uL (4.8-10.8) H Red Blood Count 4.28 M/uL (4.2-5.4) Hemoglobin 11.8 g/dL (12.0-16.0) L Hematocrit 35.2 % (37-47) L Mean Corpuscular Volume 82.2 fL (80-100) Mean Corpuscular Hemoglobin 27.6 pg (25-34) Mean Corpuscular Hemoglobin Concent 33.5 g/dl (32-36) Platelet Count 126 K/uL (130-400) L Mean Platelet Volume 8.9 fL (7.4-10.4) Neutrophils (%) (Auto) 89.1 % Lymphocytes (%) (Auto) 2.6 % Monocytes (%) (Auto) 7.3 % Eosinophils (%) (Auto) 0.0 % Basophils (%) (Auto) 0.1 % Neutrophils # (Auto) 15.73 K/uL (1.4-6.5) H Lymphocytes # (Auto) 0.46 K/uL (1.2-3.4) L Monocytes # (Auto) 1.29 K/uL (0.11-0.59) H Eosinophils # (Auto) 0.00 K/uL (0-0.5) Basophils # (Auto) 0.02 K/uL (0-0.2) Total Creatine Kinase 183 U/L (26-192) Lactic Acid Level 2.5 mmol/L (0.4-2.0) *H Micro Results Date/Time Source Procedure Growth Status 07/14/17 12:37 Blood Blood Culture Pending Received 07/14/17 12:23 Blood Blood Culture Pending Received 07/14/17 15:55 Cerebral Spinal Fluid Gram Stain - Final Resulted 07/14/17 15:55 Cerebral Spinal Fluid CSF Culture Pending Resulted 07/14/17 13:15 Urine,Catheterized Urine Culture Pending Received Risk Factors for Resistance * None identified at this time Assessment & Plan Assessment 41 year old female with sepsis secondary to unknown source, question endocarditis vs bacteremia. Possible meningitis (viral). She was found unresponsive and lying in feces/urine/menstrual blood. History of heroin use; found with syringe, possible IVDA. * Unknown baseline sCr; recent sCr = 1.26 mg/dL with estimated CrCL ~59 mL/min. Estimated pharmacokinetic parameters: * Ke ~0.053/hr, T1/2 ~13.1 hr * Patient also on Ceftriaxone and Acyclovir. ID consult ordered. Cultures pending. Plan Vancomycin IV * Loading dose: 1750 mg (24 mg/kg) * Maintenance dose: 1000 mg IV (13.7 mg/kg) every 12 hours * Goal trough level for sepsis/meningitis : 15 to 20 mcg/mL * Trough level ordered for 07/16 @ 0730 (only prior to 3rd dose and therefore not reflective of steady state, but would like to assess dosing regimen earlier due to severity of illness) Pharmacy will continue to follow and will adjust dose/frequency as necessary. Thank you.
[2017-07-14] MEDS: CEFTRIAXONE SOD INJ 2,000 MG in DEXTROSE 5% 50ML 50 ML IV SCH (20:54)
[2017-07-14] MEDS ORDERED: HEPARIN SOD 5000 UNIT/0.5 ML CARP SQ SCH (22:00)
[2017-07-14] MEDS ORDERED: PIPERACILL/TAZOBAC IV 3.375 GM in DEXTROSE 5% 100ML 100 ML IV SCH (22:00)
[2017-07-14 23:48] VITALS: BP 114/82; PULSE 106; TEMP 36.9; O2SAT 100
[2017-07-15] VITALS (9 sets, daily range): BP systolic 114–126; BP diastolic 75–80; PULSE 83–124; TEMP 36.5–38.2; O2SAT 97–100
[2017-07-15] MEDS: D5NSS + 20MEQ KCL 1,000 ML IV SCH (00:13)
[2017-07-15] MEDS: ACYCLOVIR SOD IV SCH ×2 (02:10→11:35)
[2017-07-15] MEDS: DEXTROSE 5% IV SCH ×2 (02:10→11:35)
[2017-07-15] MEDS ORDERED: KETOROLAC TROMETHAMINE 30 MG/ML VIAL IV STA (04:24)
[2017-07-15 07:57] LABS: HEMATOCRIT 31.1 % (37-47); HEMOGLOBIN 10.4 g/dL (12.0-16.0); MEAN CELL VOLUME 82.1 fL (80-100); MEAN CORPUSCULAR HEMOGLOBIN 27.4 pg (25-34); MEAN CORPUSCULAR HGB CONC 33.4 g/dl (32-36); RED CELL DISTRIBUTION WIDTH CV 13.4 % (11.5-14.5); RED CELL DISTRIBUTION WIDTH SD 40.1 fL (36.4-46.3); WHITE BLOOD COUNT 16.87 K/uL (4.8-10.8)
[2017-07-15] MEDS: CEFTRIAXONE SOD INJ 2,000 MG in DEXTROSE 5% 50ML 50 ML IV SCH (07:59)
[2017-07-15] MEDS ORDERED: VANCOMYCIN IV 1,000 MG in SODIUM CHLORIDE 0.9% 250ML 250 ML IV SCH (08:00)
[2017-07-15 08:23] LABS: MEAN PLATELET VOLUME 10.6 fL (7.4-10.4); PLATELET COUNT 68 K/uL (130-400)
[2017-07-15 08:29] LABS: CALCIUM 7.8 mg/dl (8.5-10.1); CREATININE 0.7 mg/dl (0.60-1.20); POTASSIUM 3.9 mmol/L (3.5-5.1)
--- NOTE | 2017-07-15 08:56 | ECHOCARDIOGRAM REPORT ---
*NOTICE TO RECEIVING DEMOCRAT AGENCY This information is strictly Confidential and protected under [place] law. [place] law prohibits you from making any further disclosure of this information unless further disclosure is expressly permitted by the written consent of the person to whom it pertains or is authorized by law. A general authorization for the release of medical or other information is not sufficient for this purpose. Hospital accepts no responsibility if the information is made available to any other person, INCLUDING THE PATIENT. Interpretation Summary * Name: ELMER WISE Study Date: 07/15/2017 06:36 AM BP: 116/77 mmHg * Patient Location: C.2T\S\S243\S\1 HR: 97 * : 1975 (M/d/yyyy) Gender: Female Height: 65 in * Age: 41 yrs Ethnicity: CA Weight: 161 lb * Ordering Physician: Brendon Parham * Referring Physician: No Doctor, Assigned * Performed By: Elsa Oswald RCS * * Reason For Study: ELEVATED TROPONIN * BSA: 1.8 m2 * -- Conclusions -- * 1. Normal left ventricular size and systolic function. EF 60-65%. No regional wall motion abnormalities. No left ventricular hypertrophy. * 2. Very large vegetation noted, involving the anterior mitral leaflet, measuring up to 3 x 2.1 cm in some views. * 3. There is mild mitral regurgitation. * 4. No prior study available for comparison. * 5. Dr. Jimenez was notified immediately of the above findings at approximately 840 AM. Procedure Details * A complete two-dimensional transthoracic echocardiogram was performed (2D, M-mode, Doppler and color flow Doppler). Left Ventricle * Normal left ventricular size and systolic function. EF 60-65%. No regional wall motion abnormalities. No left ventricular hypertrophy. Right Ventricle * The right ventricle is normal in size and function. * The right ventricular systolic function is normal as assessed by tricuspid annular plane systolic excursion (TAPSE) (normal >1.5 cm). Atria * The left atrial size is normal. * Right atrial size is normal. * There is no evidence of atrial septal defect, but resolution does not allow assessment for a patent foramen ovale. Mitral Valve * Very large vegetation noted, involving the anterior mitral leaflet, measuring up to 3 x 2.1 cm in some views. There is turbulent flow noted via color Doppler across the mitral valve, but no significant stenosis based on spectral Doppler. * There is no mitral valve stenosis. * There is mild mitral regurgitation. Tricuspid Valve * The tricuspid valve is not well visualized, but is grossly normal. * There is no tricuspid stenosis. * Significant tricuspid regurgitation is absent. Aortic Valve * The aortic valve is trileaflet. * No hemodynamically significant valvular aortic stenosis. * No aortic regurgitation is present. Pulmonic Valve * The pulmonary valve is inadequately visualized, but the Doppler data is adequate for interpretation. * There is no pulmonic valvular stenosis. * There is no significant pulmonary regurgitation. Great Vessels * The aortic root is normal size. * Aortic arch of normal dimension. Pericardium/Pleural * There is no pericardial effusion. Great Vessels * Normal inferior vena cava size and collapsability with sniff indicates a normal right atrial pressure of 3 mmHg MMode 2D Measurements and Calculations IVSd 0.77 cm IVSs 1.3 cm LVIDd 4.9 cm LVIDs 3.0 cm LVPWd 0.93 cm LVPWs 1.3 cm IVS/LVPW 0.83 FS 39.4 % EDV(Teich) 113.6 ml ESV(Teich) 34.3 ml EF(Teich) 69.8 % EDV(cubed) 118.7 ml ESV(cubed) 26.3 ml EF(cubed) 77.8 % % IVS thick 74.3 % % LVPW thick 39.6 % LV mass(C)d 142.3 grams LV mass(C)dI 78.9 grams/m\S\2 LV mass(C)s 125.7 grams LV mass(C)sI 69.7 grams/m\S\2 SV(Teich) 79.3 ml SI(Teich) 43.9 ml/m\S\2 SV(cubed) 92.3 ml SI(cubed) 51.2 ml/m\S\2 Ao root diam 2.9 cm Ao root area 6.8 cm\S\2 ACS 1.8 cm LA dimension 2.7 cm LA/Ao 0.91 LVOT diam 2.0 cm LVOT area 3.3 cm\S\2 LVAd ap4 29.4 cm\S\2 LVLd ap4 7.9 cm EDV(MOD-sp4) 90.5 ml EDV(sp4-el) 93.3 ml LVAs ap4 17.6 cm\S\2 LVLs ap4 7.1 cm ESV(MOD-sp4) 37.0 ml ESV(sp4-el) 37.3 ml EF(MOD-sp4) 59.1 % EF(sp4-el) 60.0 % SV(MOD-sp4) 53.5 ml SI(MOD-sp4) 29.6 ml/m\S\2 SV(sp4-el) 55.9 ml SI(sp4-el) 31.0 ml/m\S\2 Doppler Measurements and Calculations MV E max blue 131.6 cm/sec MV A max blue 118.1 cm/sec MV E/A 1.1 MV V2 max 151.0 cm/sec MV max PG 9.1 mmHg MV V2 mean 87.2 cm/sec MV mean PG 3.6 mmHg MV V2 VTI 17.8 cm Ao V2 max 107.9 cm/sec Ao max PG 4.7 mmHg Ao max PG (full) 2.1 mmHg NAVJOT(V,A) 2.4 cm\S\2 NAVJOT(V,D) 2.4 cm\S\2 LV V1 max PG 2.5 mmHg LV V1 max 79.3 cm/sec MR max blue 472.8 cm/sec MR max PG 89.4 mmHg RAP systole 3.0 mmHg
--- NOTE | 2017-07-15 10:57 | Progress Note ---
Progress Note Date of Service July 15, 2017. Progress Note ID Consult Dictated #[id number] A/P: 1. S. aureus sepsis, MV IE 2. IVDA -Continue abx, doubt meningitis, can stop acyclovir from ID standpoint -Repeat cultures x 2 -[place] [facility] [place]
--- NOTE | 2017-07-15 10:58 | Cardiology Consultation ---
Cardiology Consultation Date of Consultation: July 15, 2017. Requesting Physician: Dr. Jimenez Reason for Consultation: Left atrial mass, endocarditis Pt evaluation today including: conversation w/ patient, conversation w/ family , physical exam, lab review, review of studies, review of inpatient medication list, conversation w/ attending History of Present Illness This is a 41-year-old woman with a history of hepatitis C, IV drug abuse, tobacco abuse, psychiatric history who presented to the emergency room on July with limited responsiveness. Evidently she was relatively obtunded for several days and had not eaten for 5 days. EMS found her to be incontinent and brought her to the emergency room. In the emergency room she was obtunded and moaning, she had leukocytosis, mildly elevated creatinine and abnormal liver function test and probable sepsis from an unknown source. She did have a mildly elevated troponin, up to about 0.6. She did have a lactic acidosis. As part of her evaluation echocardiogram was done this morning which demonstrated a large atrial mass. Blood cultures are positive for gram- positive cocci and staph aureus. Urine cultures also show staph aureus, an LP was performed and CSF cultures are pending. At the time of my evaluation she was somewhat uncomfortable in bed, but she was lucid and could communicate reasonably well. Her mother is at her bedside. She is complaining of primarily back pain, nothing else specific but does not feel well. Past Medical/Surgical History (1) Depression IV drug abuse Family History Diabetes mellitus Hypertension Social History Smoking Status: Current Every Day Smoker History of Alcohol Use: No Review of Systems Constitutional: + fever, + weight loss, No weakness Respiratory: No cough, No wheezing, No shortness of breath, No dyspnea on exertion Cardiac: No chest pain, No orthopnea, No PND, No edema, No palpitations Abdomen: No pain, No nausea, No vomiting, No diarrhea, No GI bleeding Female : No problem reported Neurologic: No paralysis, No weakness, No numbness/tingling, No balance problems Heme: No abnormal bleeding/bruising, No clotting problems Endo: No fatigue Skin: No problem reported All Other Systems: Reviewed and Negative Allergies Coded Allergies: No Known Allergies (Unverified , 07/14/17) Medications Current Inpatient Medications Medications (Trade) Dose Ordered Sig/[place] Route Start Time Stop Time Status Last Admin Dose Admin Ioversol (Optiray 320) 125 ml UD PRN IV 07/14/17 13:30 07/18/17 13:29 Acetaminophen (Tylenol Tab) 650 mg Q4H PRN PO 07/14/17 16:00 08/13/17 15:59 07/15/17 04:06 650 MG Al Hydrox/Mg Hydrox/Simethicone (Maalox Max Susp) 15 ml Q4H PRN PO 07/14/17 16:00 08/13/17 15:59 Magnesium Hydroxide (Milk Of Magnesia Susp) 30 ml Q12H PRN PO 07/14/17 16:00 08/13/17 15:59 Ondansetron HCl (Zofran Inj) 4 mg Q6H PRN IV 07/14/17 16:00 08/13/17 15:59 Polyethylene (Miralax Powder Packet) 17 gm DAILY PRN PO 07/14/17 16:00 08/13/17 15:59 Miscellaneous Information (Consult) 1 ea UD PRN N/A 07/14/17 16:30 08/13/17 16:29 Ceftriaxone Sodium 2000 mg/ Dextrose 70 ml @ 100 mls/hr Q12H IV 07/14/17 20:00 07/24/17 19:59 07/15/17 07:59 100 MLS/HR Acetaminophen 100 ml @ 400 mls/hr Q8H PRN IV 07/14/17 17:30 08/13/17 17:29 Acyclovir Sodium 730 mg/Dextrose 114.6 ml @ 110 mls/hr Q8H IV 07/14/17 18:00 07/24/17 17:59 07/15/17 02:10 110 MLS/HR Vancomycin HCl 1000 mg/Sodium Chloride 270 ml @ 125 mls/hr Q12H IV 07/15/17 08:00 07/24/17 07:59 07/15/17 08:00 125 MLS/HR Physical Exam Vital Signs Past 12 Hours Date Time Temp Pulse Resp B/P (MAP) Pulse Ox O2 Delivery O2 Flow Rate FiO2 07/15/17 08:00 97 Room Air 07/15/17 07:43 36.7 99 20 126/80 (95) 100 Room Air 07/15/17 04:30 37.2 07/15/17 04:00 98 Room Air 07/15/17 03:33 38.2 124 22 116/77 (90) 99 Room Air 07/15/17 00:00 98 Room Air 07/14/17 23:48 36.9 106 20 114/82 (93) 100 Room Air Constitutional: General Apperance: too thin Level of Distress: moderate distress Psychiatric: Mental Status: active & alert Head: normocephalic Eyes: EOM: EOMI ENMT: normal ENT inspection, hearing grossly normal Neck: supple, no masses Lungs: Respiratory effort: no dyspnea, good air movement Auscultation: breath sounds normal, no wheezing Cardiovascular: Heart Auscultation: RRR, no rubs, no gallops, II/ WSM Peripheral Pulses: Bruits: none appreciated Abdomen: Bowel Sounds: normal Inspection & Palpation: soft, no tenderness, guarding & rebound, no masses Musculoskeletal: normal strength (5/5 throughout) Extremities: no edema Neurologic: Cranial Nerves: grossly intact Sensation: grossly intact Data Laboratory Results: Last 24 Hours Test 07/14/17 12:23 07/14/17 12:37 07/14/17 13:15 07/14/17 15:55 White Blood Count 17.66 K/uL Red Blood Count 4.28 M/uL Hemoglobin 11.8 g/dL Hematocrit 35.2 % Mean Corpuscular Volume 82.2 fL Mean Corpuscular Hemoglobin 27.6 pg Mean Corpuscular Hemoglobin Concent 33.5 g/dl Platelet Count 126 K/uL Mean Platelet Volume 8.9 fL Neutrophils (%) (Auto) 89.1 % Lymphocytes (%) (Auto) 2.6 % Monocytes (%) (Auto) 7.3 % Eosinophils (%) (Auto) 0.0 % Basophils (%) (Auto) 0.1 % Neutrophils # (Auto) 15.73 K/uL Lymphocytes # (Auto) 0.46 K/uL Monocytes # (Auto) 1.29 K/uL Eosinophils # (Auto) 0.00 K/uL Basophils # (Auto) 0.02 K/uL RDW Standard Deviation 39.4 fL RDW Coefficient of Variation 13.1 % Immature Granulocyte % (Auto) 0.9 % Immature Granulocyte # (Auto) 0.16 K/uL Erythrocyte Sedimentation Rate 33 mm/hr Prothrombin Time 17.0 SECONDS Prothromb Time International Ratio 1.6 Activated Partial Thromboplast Time 37.8 SECONDS Partial Thromboplastin Ratio 1.5 Venous Blood pH 7.41 Venous Blood Partial Pressure CO2 36 mmHg Venous Blood Partial Pressure O2 35 mmHg Venous Blood HCO3 23 mmol/L Venous Blood Oxygen Saturation 65.7 % Venous Blood Base Excess -1.5 mEq/L Sodium Level 133 mmol/L Potassium Level 3.0 mmol/L Chloride Level 99 mmol/L Carbon Dioxide Level 22 mmol/L Anion Gap 12.0 mmol/L 19.0 mmol/L Blood Urea Nitrogen 19 mg/dl Creatinine 1.26 mg/dl Est Creatinine Clear Calc Drug Dose 59.4 ml/min Estimated GFR () 61.7 Estimated GFR (Non- 53.2 BUN/Creatinine Ratio 15.3 Random Glucose 124 mg/dl Osmolality 278 mOsm/kg Lactic Acid Level 4.1 mmol/L Calcium Level 7.8 mg/dl Phosphorus Level 2.2 mg/dl Magnesium Level 1.3 mg/dl Total Bilirubin 1.2 mg/dl Aspartate Amino Transf (AST/SGOT) 116 U/L Alanine Aminotransferase (ALT/SGPT) 121 U/L Alkaline Phosphatase 418 U/L Total Creatine Kinase 183 U/L Creatine Kinase MB 2.0 ng/ml Creatine Kinase MB Ratio 1.1 Troponin I 0.209 ng/ml C-Reactive Protein 25.60 mg/dl Total Protein 6.9 gm/dl Albumin 2.4 gm/dl Globulin 4.5 gm/dl Albumin/Globulin Ratio 0.5 Lipase 43 U/L Human Chorionic Gonadotropin, Qual NEG Ethyl Alcohol mg/dL < 3.0 mg/dl Bedside Hemoglobin 12.2 g/dl Bedside Hematocrit 36 % Bedside Sodium 135 mEq/L Bedside Potassium 3.1 mEq/L Bedside Chloride 97 mEq/L Bedside Total CO2 23 mEq/l Bedside Blood Urea Nitrogen 19 mg/dl Bedside Creatinine 1.1 mg/dl Bedside Glucose (other) 130 mg/dl Bedside Ionized Calcium (Tom) 0.99 mmol/l Urine Color DK YELLOW Urine Appearance CLOUDY Urine pH 5.0 Urine Specific [place] 1.026 Urine Protein 2+ Urine Glucose (UA) NEG Urine Ketones TRACE Urine Occult Blood 3+ Urine Nitrite POS Urine Bilirubin 1+ Urine Urobilinogen NEG Urine Leukocyte Esterase MODERATE Urine WBC (Auto) >30 /hpf Urine RBC (Auto) 5-10 /hpf Urine Hyaline Casts (Auto) 1-5 /lpf Urine Epithelial Cells (Auto) 10-20 /lpf Urine Bacteria (Auto) NEG Urine Renal Epithelial Cells /lpf Urine Pathogenic Casts /lpf Urine Mucus PRESENT Urine Yeast (Auto) Urine Opiates Screen NEG Urine Methadone, Qualitative NEG Urine Barbiturates NEG Urine Phencyclidine (PCP) Level NEG Ur Amphetamine/Methamphetamine POS MDMA (Ecstasy) Screen POS Urine Benzodiazepines Screen NEG Urine Cocaine Metabolite NEG Urine Marijuana (THC) NEG CSF Color COLORLESS CSF Appearance CLEAR CSF WBC 46 /uL CSF RBC 3 /uL CSF Polynuclear WBCs 34.0 % CSF Mononuclear WBCs 66.0 % CSF Xanthrochromic NO XANTHOCHROMIA CSF Cell Count Tube # 4 CSF Polynuclear WBCs (%) % CSF Chemistry Tube # 2 CSF Glucose 70 mg/dl CSF Total Protein 64.3 mg/dl Test 07/14/17 17:12 07/14/17 18:46 07/14/17 22:48 07/15/17 07:31 Sodium Level 135 mmol/L 138 mmol/L Potassium Level 3.4 mmol/L 3.9 mmol/L Chloride Level 104 mmol/L 109 mmol/L Carbon Dioxide Level 22 mmol/L 23 mmol/L Anion Gap 9.0 mmol/L 7.0 mmol/L Blood Urea Nitrogen 13 mg/dl 13 mg/dl Creatinine 0.86 mg/dl 0.70 mg/dl Est Creatinine Clear Calc Drug Dose 87.1 ml/min 107.0 ml/min Estimated GFR () 97.9 125.6 Estimated GFR (Non- 84.5 108.4 BUN/Creatinine Ratio 14.6 18.0 Random Glucose 120 mg/dl 143 mg/dl Calcium Level 7.2 mg/dl 7.8 mg/dl Total Bilirubin 1.1 mg/dl Direct Bilirubin 0.8 mg/dl Aspartate Amino Transf (AST/SGOT) 100 U/L Alanine Aminotransferase (ALT/SGPT) 106 U/L Alkaline Phosphatase 341 U/L Troponin I 0.594 ng/ml 0.587 ng/ml Total Protein 6.4 gm/dl Albumin 2.1 gm/dl Lactic Acid Level 2.5 mmol/L Ammonia < 10.0 umol/L Thyroid Stimulating Hormone (TSH) 0.344 uIu/ml Lyme Disease IgG Antibody NEG Lyme Disease IgM Antibody NEG White Blood Count 16.87 K/uL Red Blood Count 3.79 M/uL Hemoglobin 10.4 g/dL Hematocrit 31.1 % Mean Corpuscular Volume 82.1 fL Mean Corpuscular Hemoglobin 27.4 pg Mean Corpuscular Hemoglobin Concent 33.4 g/dl RDW Standard Deviation 40.1 fL RDW Coefficient of Variation 13.4 % Platelet Count 68 K/uL Mean Platelet Volume 10.6 fL Platelet Estimate DECREASED Magnesium Level 2.1 mg/dl Imaging: An echocardiogram done this morning shows normal left ventricular size and function. There is a large left atrial vegetation measuring 3 x 2.1 cm. Mild mitral regurgitation was identified. EKG: Sinus tachycardia no significant abnormality Telemetry reviewed: Sinus tachycardia predominantly, no significant arrhythmia Assessment & Plan 1. Atrial mass: This is consistent with a large vegetation and she has staph aureus in her blood. The vegetation is large enough that there is significant risk if it should embolize. It should be considered for surgical removal. I reviewed this with the patient and her mother at the bedside and she is agreeable. She would like to go to [facility] for that procedure. We will therefore make arrangements. 2. Mitral regurgitation: She has only mild mitral regurgitation on echo and by exam. The mass is attached to the mitral valve however. I will leave the decision as to whether the mitral valve needs to be replaced up to the surgical service. Thank you for allowing me to participate in her care.
--- NOTE | 2017-07-15 11:36 | Discharge Instructions ---
Discharge Instructions Date of Service July 15, 2017. Admission Reason for Admission: Sepsis, Altered Mental Status Discharge Discharge Diagnosis / Problem: Infective endocarditits Discharge Goals Goal(s): Prevent Disease Progression Activity Recommendations Activity Limitations: as noted below Lifting Limitations: until after follow-up appointment . Instructions / Follow-Up Instructions / Follow-Up Being transferred to [facility] for surgery. Current Hospital Diet Patient's current hospital diet: Discharge Diet Recommended Diet: Full Liquid Diet Pending Studies Studies pending at discharge: no Medical Emergencies . Who to Call and When: Medical Emergencies: If at any time you feel your situation is an emergency, please call 911 immediately. . Non-Emergent Contact Non-Emergency issues call your: Primary Care Provider Call Non-Emergent contact if: you have any medication questions . . "Provider Documentation" section prepared by Ta Jimenez. .
--- NOTE | 2017-07-15 11:46 | Discharge Summary ---
Discharge Summary Date of Service July 15, 2017. Discharge Summary Admission Date: July 14, 2017 at 15:55 Discharge Date: July 15, 2017 Discharge Disposition: Acute care facility Principal Diagnosis: Infective Endocarditis Procedures: Echocardiogram -- Conclusions -- * 1. Normal left ventricular size and systolic function. EF 60-65%. No regional wall motion abnormalities. No left ventricular hypertrophy. * 2. Very large vegetation noted, involving the anterior mitral leaflet, measuring up to 3 x 2.1 cm in some views. * 3. There is mild mitral regurgitation. * 4. No prior study available for comparison. Discharge Exam PHYSICAL EXAM General Appearance: No distress, + pertinent finding (looks older than age) Head: normocephalic, atraumatic Eyes: sclerae normal Neck: supple, no JVD, trachea midline Respiratory/Chest: no accessory muscle use, no distress, clear Cardiovascular: no murmur, + tachycardia Abdomen/GI: non tender (no facial grimace or signs of pain with palpation), + abnormal bowel sounds (hypoactive x 4 quadrants), + distended Extremities/Musculoskelatal: no pedal edema Neurologic/Psych: [id number] Skin: + diaphoresis, + pertinent finding (track wilkinson of b/l hands possible; acne-like scabs on face) Review of Systems: Constitutional: + sweats, No fever, No chills Eyes: No worsening of vision ENT: No hearing loss Respiratory: + cough Cardiovascular: No chest pain Abdomen: No pain Neurologic: No memory loss Psychiatric: + anxiety, No depression symptoms Endocrine: No fatigue Hematologic / Lymphatic: No abnormal bleeding/bruising Integumentary: No rash Hospital Course Ms. Arias is a 41 y/o female with PMHx of Hepatitis C, Heroin User, Tobacco User , Possible Bipolar/Schizophrenia who presents to the ED by EMS for suspected overdose Severe Sepsis 2/2 Infective Endcarditits Echocardiogram shows 3x2 cm vegetation D/W [facility] and In house cardio Will transport via S after discussing with In house cardio. D/W family and patient this and they accept this type of transportation Patient will continue on vancomycin as culutres are positve for staph aureus.. Initally was concern over meningisti but patient is no longer obtunded and source is endocarditis. Lactic acid is 2.5 from 4.1 Drug Overdose: Methamphetamine +/Insulin Syringe found/Solid White Substance in Bag: - Methampetamine + on drug screen - Maintaining airway at this time VBG unremarkable - will monitor Acute Toxic vs Metabolic vs Other Encephalopathy: - Obtain ammonia and TSH levels to assess as contributing -Improved. Constipation and Possible Ileus: - Mildy distended abdomen with large stool burden - NPO Demand ischemia. trop. peaked at .5; echo normal. will monitor. H/O Hep. C LFT IMPROVING DVT Prophylaxis: Hold Heparin given LP; SCDs Disposition: - Called [facility] - no other meds except Suboxone -Transfer to [facility] Total Time Spent: Greater than 30 minutes This includes examination of the patient, discharge planning, medication reconciliation, and communication with other providers. Discharge Instructions Please refer to the electronic Patient Visit Report (Discharge Instructions) for additional information.
--- NOTE | 2017-07-15 13:20 | INFECT. DISEASE CONSULTATION ---
DATE OF CONSULTATION: 07/15/2017 HISTORY OF PRESENT ILLNESS: This is a 41-year-old female who was admitted to the hospital after she was found to be unresponsive by family members with a needle in her arm. She was subsequently brought to the hospital, her urine drug screen was positive for ecstasy and methamphetamine. Per family that accompanied her to the Emergency Room, she does have a history of former heroin abuse and recently has been on Suboxone at a clinic in [place]. She does also have a history of hepatitis C, bipolar disorder and schizophrenia. She recently had a back injury after lifting her dog and was more sedentary secondary to back pain. She did have a CAT scan of the head, cervical spine, thoracic spine and lumbar spine in the ER which were unremarkable with the exception of a liver hemangioma. She has had persistent fever since arrival to the hospital with a T-max of 39.6 yesterday afternoon. She does have family present with her who provide her history on my examination and they deny any fever prior to admission to the hospital. Because of her change in mental status, fever and leukocytosis of 17,008, A lumbar puncture was performed in the ER. This showed 46 white blood cells with 66% lymphocytes. A Lyme screen is negative. A herpes simplex DNA is pending. She was placed empirically on vancomycin, Rocephin and acyclovir. She remains on these antibiotics and appears to be tolerating them well. Her LFTs are mildly elevated with an AST of 100 and ALT of 106. Her CRP is elevated at 25 and her sed rate is 33. Her lactic acid peaked overnight at 4.1, but has improved to 2.5 today. Urinalysis has greater than 30 wbc's, but no bacteria. Blood cultures were obtained in the ER and are growing Staph aureus in 2/2 sets. Her urine culture is also growing Staph aureus. CSF culture is pending, but her Gram stain is negative. As part of her workup this morning, she did undergo echocardiogram which showed a very large mobile vegetation on the mitral valve, measuring 2.1 x 3 cm. She is currently being worked up for transfer to [facility] for this. The patient is unable to tell me any history. She only states that she is hungry and asks for something to eat. PAST MEDICAL HISTORY: Significant for depression, history of kidney stones, bipolar disorder, schizophrenia, history of suicidal ideation, hepatitis C and intravenous drug use. FAMILY HISTORY: Noncontributory. SOCIAL HISTORY: Significant for daily tobacco use. Again, she does have a history of IV drug abuse. I do not elicit a history of alcohol abuse from the family. ALLERGIES: No known drug allergies. CURRENT MEDICATIONS: Vancomycin, Rocephin, acyclovir, acetaminophen, Maalox, milk of magnesia, Zofran, MiraLax. PHYSICAL EXAMINATION: VITAL SIGNS: Her current temperature is 36.7, her T-max was 39.6 overnight, pulse 99, respiratory rate 20, blood pressure 126/80, oxygen saturation is 97-100% on room air. GENERAL: She is awake and alert, but does not provide a significant history. HEENT: Mucous membranes are dry. Extraocular muscles are intact. There is no nuchal rigidity. HEART: Regular. LUNGS: Clear bilaterally. ABDOMEN: Soft and nondistended. EXTREMITIES: There is no edema. SKIN: Has multiple track wilkinson. She also does have myofacial lesions, which may very well be induced. LABORATORY STUDIES: CBC today reveals a white blood cell count of 16.8, hemoglobin 10.4, platelets are 68. Sed rate is 33. Chemistry panel: Sodium 138, potassium 3.9, chloride 109, bicarbonate 23, BUN 13, creatinine 0.7, glucose 143. Troponins are mildly elevated at 0.5. Ammonia level was negative. Her lactic acid overnight was 2.5. test was negative. Urinalysis again had greater than 30 wbc's, but no bacteria. CSF analysis was clear, colorless, 46 white blood cells, 66% lymphocytes. Protein was elevated at 64. Glucose was normal at 70. A Lyme screen is negative. HSV PCR is pending. On July 14, blood cultures are growing Staph aureus. Urine culture is also growing Staph aureus. Sensitivities are not available. CSF culture is pending with negative Gram stain. Imaging is as above. 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 She will be maintained on empiric antibiotics pending additional culture data. Repeat blood cultures will be ordered. She is pending a transfer to [facility] and we will follow along with you.
[2017-07-15] MEDS ORDERED: VANCOMYCIN IV 1,250 MG in SODIUM CHLORIDE 0.9% 250ML 250 ML IV SCH (14:00)
[2017-07-16] MEDS ORDERED: VANCOMYCIN TROUGH ONE ×2 (05:30→07:30)
== END 2017-07-15 16:45 | disposition short-term general hospital (02) | DRG 871 ==
LOC: EDBD 11:58 → C.EDB 11:59 → C.2T 15:55 → UNDOADMIN 15:55 → ENRESERV 16:01
PROVIDERS: ADMIT Internal Medicine; ATTEND Internal Medicine
PROC: 009 Central Nervous System and Cranial Nerves, Drainage (ICD-10-PCS; principal; 2017-07-14)
PROC: 06HM33Z Insertion of Infusion Device into Right Femoral Vein, Percutaneous Approach (ICD-10-PCS; 2017-07-14)
DX: A41.9 Sepsis, unspecified organism (principal); G92 Toxic encephalopathy; N39.0 Urinary tract infection, site not specified; K56.7 Ileus, unspecified; I38 Endocarditis, valve unspecified; I24.8 Other forms of acute ischemic heart disease; F17.200 Nicotine dependence, unspecified, uncomplicated; B19.20 Unspecified viral hepatitis C without hepatic coma; F31.9 Bipolar disorder, unspecified; F20.9 Schizophrenia, unspecified; Z83.3 Family history of diabetes mellitus; T43.621A Poisoning by amphetamines, accidental (unintentional), initial encounter; K59.00 Constipation, unspecified; F11.11 Opioid abuse, in remission